=== PATIENT | male | born 1935 | race Caucasian/White ===

== ENCOUNTER 2016-11-26 17:49 | Emergency (ER) | payer MEDICARE, BC ==
[~2016-11-26] VITALS: Ht 177.8 cm; Wt 87.1 kg
[2016-11-26] MEDS ORDERED: MIDODRINE HCL2.5 MG PO (18:02)
[2016-11-26] MEDS ORDERED: ACID CONTROLLER20 M1 PO (18:02)
[2016-11-26] MEDS ORDERED: XANAX0.25 MG PO (18:02)
[2016-11-26] MEDS ORDERED: COLACE100 MG PO (18:03)
[2016-11-26] MEDS ORDERED: ASPIRIN CHEWABL81 MG PO (18:03)
[2016-11-26] MEDS ORDERED: DELTASONE20 M1 PO (18:03)
[2016-11-26] MEDS ORDERED: MIRTAZAPINE15 M2 PO (18:03)
[2016-11-26] MEDS ORDERED: Synthroid,Levo50 MCG PO (18:04)
[2016-11-26 18:23] LABS: BASO % 0.1 % (0.0-1.0); EOS % 0.1 % (1.0-4.0); HEMATOCRIT 47.6 % (42.0-52.0); HEMOGLOBIN 15.7 g/dl (14.0-18.0); IG # 0.1 10*3/uL (0.0-0.1); LYMPH # 1.5 10*3/uL (1.3-4.4); LYMPH % 11.9 % (27.0-41.0); MEAN CORPUSCULAR HGB 31.3 pg (27.0-31.0); MEAN PLATELET VOLUME 10.4 fl (9.6-12.3); MONO # 0.7 10*3/uL (0.1-1.0); MONO % 5.3 % (3.0-9.0); NEUT # 10.4 10*3/uL (2.3-7.9); PLATELET COUNT AUTOMATED 191 10*3/uL (130-400); RED BLOOD COUNT 5.01 10*6/uL (4.50-5.90); RED CELL DISTRI WIDTH 13.5 % (0-14.5); WHITE BLOOD COUNT 12.6 10*3/uL (4.8-10.8)
[2016-11-26 18:40] LABS: ALBUMIN 3.3 gm/dl (3.1-4.5); ALKALINE PHOSPHATASE 84 U/L (45-117); BILIRUBIN, TOTAL 0.4 mg/dl (0.2-1.0); BUN 18 mg/dl (7-24); CARBON DIOXIDE 31 mmol/L (21-32); CHLORIDE 107 mmol/L (98-107); EST GLOM FILT AFRICAN AMERICAN > 60 ml/min; GLUCOSE 105 mg/dL (65-99); POTASSIUM 4.9 mmol/L (3.5-5.1); SGOT/AST 19 IU/L (3-35); SGPT/ALT 39 U/L (12-78); SODIUM 143 mmol/L (136-145); TOTAL PROTEIN 6.6 gm/dL (6.4-8.2)
[2016-11-26 18:53] LABS: BILIRUBIN NEGATIVE (NEGATIVE); BLOOD TRACE-LYSED (NEGATIVE); CLARITY CLEAR (CLEAR); COLOR YELLOW (YELLOW); GLUCOSE NEGATIVE (NEGATIVE); KETONE NEGATIVE (NEGATIVE); LEUKO ESTERASE NEGATIVE (NEGATIVE); NITRITE NEGATIVE (NEGATIVE); PROTEIN NEGATIVE (NEGATIVE); SPECIFIC GRAVITY <= 1.005 (1.005-1.030); URINE AMPHETAMINES < 1000 (1000ng/ml); URINE BARBITURATES < 200 (200ng/ml); URINE COCAINE < 300 (300ng/ml); UROBILINOGEN 0.2 E.U./dl (0.2-1.0)
[2016-11-26 19:18] LABS: URINE REFLEX COMMENT NO (NO); WBC 0-2 wbc/hpf (0-5)
== END 2016-11-26 21:19 | disposition home health service (06) ==
LOC: ED 17:49
PROVIDERS: Nurse Practitioner Family
DX: F23 Brief psychotic disorder (principal); Z79.82 Long term (current) use of aspirin; Z79.899 Other long term (current) drug therapy; Z91.018 Allergy to other foods

== ENCOUNTER 2016-11-26 20:25 | Inpatient (IN) | payer MEDICARE, BC ==
[~2016-11-26] VITALS: Ht 177.8 cm; Wt 86.5 kg
--- NOTE | ~2016-11-26 | PR ---
[place], [place] PROGRESS NOTE [facility]: [id number] UNIT #: [id number] ROOM: 317 DOCTOR: KAREN FELDMAN BIRTHDATE: [birth year] DOS: 12/01/2016 CHIEF COMPLAINT: "When will I be going home?" SUMMARY OF THE VISIT: The patient was seen sitting in the dining room where he was eating breakfast. He is very bright and alert. He is wondering about what the plans are for his discharge and where he will be going for outpatient followup after discharge. He reports that he has had good sleep and good appetite. He mentioned going to [facility] for outpatient followup following discharge from here. He still has just a slight anxious edge to him. He is alert and oriented x 3. Mood is bright. Affect is appropriate. PLAN: We are going to go ahead and increase his Ativan a little just because he still has that kind of anxious edge. Social service is working on him with the discharge plan, it will either be a 30-day rehab stay or he will discharge home with outpatient followup. We will continue to engage in individual and bobo milieu, try to make him feel a little less of that anxious edge prior to discharge to the least restrictive environment. Karen Feldman NP CM:CHICO 41 KAREN FELDMAN 12/01/162040 interface
--- NOTE | ~2016-11-26 | WRIGHTHP ---
[place], [place] PATIENT HISTORY AND PHYSICAL EXAM NAME: [facility] [id number] UNIT #: [id number] ROOM: 317 DOCTOR: ISIDRO HARTLEY BIRTHDATE: [birth year] DOS: 11/27/2016 HISTORY OF PRESENT ILLNESS: This is an 81-year-old man admitted from [facility]. He also has had a recent stay at [facility] in the last couple of weeks due to increased anxiety and chemical imbalances, he describes it. He was out with family apparently in [facility], had thoughts of hurting himself. The Emergency Room report says others as well. He did not endorse that and thought he should go to the hospital. For some reason, his family drove him down to [place] instead of going back to [place]. I could not get a straight answer as far as why they did not go back to [place]. PAST MEDICAL HISTORY: Includes pulmonary fibrosis, AFib with an ablation, celiac disease, orthostatic hypotension. He had a subdural hematoma last year requiring craniotomy as well. The patient does endorse a history of depression and anxiety that he states is new. MENTAL STATUS: He is alert and oriented to person, place, approximate time, looks overwhelmingly anxious. At some point in time when I saw, he was processing items slow, he apologized and stated "I am so sorry, I am quite anxious right now, I just need a moment to catch my breath and calm down." He does need to be on oxygen 3 liters at all times. This is distressing to him as well because it kind of tethers him. He is not as active as he used to be in the past. The patient is on titrating dose of prednisone, started out at 30, is currently at 20. I will continue to titrate down to 10. It should be noted this could be triggering some of his anxiety as well. The patient stated that he was on Xanax 3 times a day 0.5 mg and had almost completed and tapered off it and then was started on the prednisone taper and noticed that his anxiety became exceedingly worse. So, I do think this is a triggering medication for him. The patient also stated that his thyroid medication had been recently adjusted. His TSH is 1.270. We are going to go ahead and check a T3 and T4. The patient also stated that approximately 2 weeks ago, his doctor stopped his Prozac that he felt was somewhat effective because it is contraindicated with pulmonary fibrosis and switched him to Remeron 15 mg at bedtime along with the Xanax 0.5 mg t.i.d. DIAGNOSES: Suicidal ideation secondary to anxiety and depression. PLAN: I am going to increase his Remeron to 22.5 mg at bedtime and amend. This should still give him histamine response to sedation for help with sleep and stimulate his appetite, but be a little bit more effective with depression. I changed his Xanax to Ativan. We are doing 0.5 mg t.i.d. plus p.r.n. made available. The patient is cautious about combining his Remeron with his Ativan and requested not to receive his nighttime dose of Ativan last night because he did not want to feel oversedated. The patient is very purposeful, a little OCD. He admits to liking his routines, which might be contributing to just an underlying generalized anxiety or OCD going on. Combined with his current health situation and the addition of the steroid taper, this might just be a perfect storm for this gentleman. He is feeling out of control, chemically imbalanced, is how he describes it. I have discussed medication changes with [place], [place] PATIENT HISTORY AND PHYSICAL EXAM NAME: ARNULFO LAURA UNIT #: [id number] ROOM: 317 DOCTOR: ISIDRO HARTLEY BIRTHDATE: 37 nursing. I have asked the patient to please let the nurses know when he is feeling particularly anxious, first and foremost to see if there is a scheduled Ativan available for him, but also let us see if within a recent administration of a steroid, see if the steroid really is triggering some of his anxiety. I also want them to check his pulse ox to make sure he is not hypoxic as well. It should be noted that the patient has admitted to wearing a pulse ox around his house 23/01, so there is underlying anxiety with this gentleman and the fear of being short of breath or not breathing or imminent doom. So, we need to start educating him a little bit on anxiety, panic attacks, maybe work with some cognitive behavioral therapy to help redirect his thoughts, but I did spend a lot of time speaking with him about how steroids can make you feel anxious and he just needs to kind of ride it out and once the steroid has filtered through his system, his anxiety should be less. So, hopefully a little bit of education will help decrease some of his anxiety as well. We will continue to try to engage in individual and bobo milieu therapy with a plan to discharge when psychologically stable. ROBERT HARTLEY CNP CM:HISPHYS:PATIENT HISTORY AND PHYSICAL EXAMINATION [id number] ISIDRO HARTLEY 11/28/16 1534 interface
--- NOTE | ~2016-11-26 | PR ---
[place], [place] PROGRESS NOTE NAME: [facility] #[facility] [id number] UNIT #: [id number] ROOM: 317 DOCTOR: ARNULFO NICHOLAS MD BIRTHDATE: [birth year] DOS: 11/29/2016 CHIEF COMPLAINT: This is so much better than yesterday. I feel a whole lot better." SUMMARY OF THE VISIT: The patient was interviewed as he rested quietly in bed. He engaged readily in conversation and reports he feels dramatically improved from yesterday. He does not have the hung over or he did and feels much more clear headed. Additionally, he feels that both the anxiety and the depression have come under control and he is tolerating the current medication regimen well with excellent benefits. MENTAL STATUS: He is alert and oriented to person, place, and time. Mood is strongly trending towards euthymia. Affect is much more appropriate. There are no symptoms of anxiety. There are no panic attacks or generalized anxiety. There is no erica or hypomania. There are no auditory or visual hallucinations. No delusions or paranoia are voiced. Short, intermediate, and long-term memory are intact. PLAN: I will maintain the current psychotropic regimen and monitor and support through the next 24 hours to make certain that the side effects truly have subsided and the benefits truly have taken effect. He will engage in individual and bobo milieu activity with the ultimate plan to return home when stable. ARNULFO NICHOLAS MD CM:PNTRANS [phone] [id number] ARNULFO NICHOLAS MD 11/29/16904 interface
--- NOTE | ~2016-11-26 | PR ---
[place], [place] PROGRESS NOTE NAME: ARNULFO LAURA [facility] #: [id number] UNIT #: [id number] ROOM: 317 DOCTOR: ISIDRO HARTLEY BIRTHDATE: [birth year] DOS: 11/30/2016 CHIEF COMPLAINT: "Good morning." SUMMARY OF VISIT: The patient was interviewed in his room where he was sitting up in bed with his oxygen on. Very calm, engaging, pleasant. We talked a little bit more about his steroid titration, he does feel that the steroids make his anxiety worse initially after taking it for about an hour or two. 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 He states that his sleep is good. His appetite is excellent. MENTAL STATUS: Alert and oriented to person, place, and time. Mood, definitely trending towards euthymic, ____ underlying anxiety. When I talked to him a little bit about possible discharge tomorrow, he is like what if I am not ready, what if I do not think I can do it. I then told him that if you are not ready, we are not going to send you home. This is not going to offend me at all. He ____ relief. Affect is appropriate. There are no overt signs of auditory or visual hallucinations, delusions, paranoia, erica or hypomania. Memory is overall intact. There is just some underlying anxiety and I think some of it is valid, I think some of it may still be complicated by his prednisone taper. PLAN: I am going to continue with his current psychotropics. I am not going to make any changes. I worked with him a little bit from a cognitive behavioral standpoint as far as redirecting his thoughts, lying down, taking deep breaths shortly after receiving his prednisone taper if his anxiety is worse and just giving the medication time to pass through his system. The patient states that he has been trying this since I discussed that with him over the weekend and it has been helpful. I did talk to the public health social worker, I think the patient would benefit from a 30-day stay at a nursing facility to help build up the strength, to help him deal with his new diagnosis, all the medication changes, get him through the steroid taper and just help him transition back into his life. It is really important that we encourage him that this does not have to be a sentence or be ready to at this point in time if there is plenty of life in him. We just got to get him believing it. Right now, I think he is just overwhelmed from all ____ and having difficulty processing it. Again, I am going to keep the psychotropics where they are at. He should be due for a decrease in his steroid within the next week, I believe on 12/07/2016 the decreased dose goes then. We will continue to engage in individual and bobo milieu therapy. We will follow up and see if a rehab stay is appropriate for him. [place], [place] PROGRESS NOTE NAME: ARNULFO LAURA UNIT #: [id number] ROOM: [facility] DOCTOR: ISIDRO HARTLEY BIRTHDATE: [birth year] ROBERT HARTLEY CNP CM:PNTRANS [phone] ISIDRO HARTLEY 11/30/162199 interface
--- NOTE | ~2016-11-26 | PR ---
[place], [place] PROGRESS NOTE [id number] UNIT #: [id number] ROOM: 317 DOCTOR: ARNULFO NICHOLAS MD BIRTHDATE: [birth year] DOS: 11/28/2016 CHIEF COMPLAINT: "I have been so anxious and depressed. I think though I am little hazy this morning." SUMMARY OF THE VISIT: The patient was interviewed as he sat in the dining area, watching television. He stopped and engaged readily in conversation with me. He reports that he has been battling depression and anxiety for sometime, does feel that the medicines that he is on here have already helped things like his sleep and have decreased some of his anxiety, but they are causing him to feel very fuzzy headed and overly somnolent during the day. He does not like the feeling and wants to be able to have symptoms controlled without this type of side effect. He denies any other side effects from the medicines themselves. MENTAL STATUS: He is alert and oriented to person, place, and time. Mood is depressed with anxious overtones. He endorses positive anxiety that is free floating and consistent throughout the day. He does not notice any precipitating factors or anything that makes it better. He notes no hypomania or erica and also notes no psychotic symptomatology. Memory is fully intact. PLAN: I will increase the Remeron from 22.5 mg at bedtime to 30 mg at bedtime in an effort to decrease some of the possible sedation. I will also lower his straight Ativan from 0.5 mg 3 times a day to 0.25 mg 3 times a day to see if this will control the anxiety without any somnolence during the day. We will engage in individual and bobo milieu activity with the plan to return home when stable. ARNULFO NICHOLAS MD CM:PNTRANS [phone] ARNULFO NICHOLAS MD 11/28/16 103 interface
--- NOTE | ~2016-11-26 | PR ---
[place], [place] PROGRESS NOTE [id number] UNIT #: [id number] ROOM: 317 DOCTOR: KAREN FELDMAN BIRTHDATE: [birth year] DOS: 12/02/2016 INTERVAL NOTE CHIEF COMPLAINT: "I am ready to go home." SUMMARY OF VISIT: He was seen in the dining room where he was having his breakfast. He is alert, pleasant. He was wearing his continuous O2, interacting with another resident who was sitting at the table with him. MENTAL STATUS EXAMINATION: He is alert and oriented. Mood is bright. Affect is appropriate. He simply is awaiting for the arrangements to be made for discharge. He needs to have pulmonary rehab as an outpatient as was recommended and that is kind of a hold-up, but we are trying to find for him. He will follow up with outpatient mental health as well once he is discharged from here. PLAN: To continue to monitor, make sure that we get this discharge set up and hopefully we can have him prepared for discharge as soon as tomorrow. Karen Feldman NP CM:PNMIGUEL ANGEL [phone] KAREN FELDMAN 12/03/16 0004 interface
--- NOTE | ~2016-11-26 | DS ---
[place], [place] DISCHARGE SUMMARY [id number] UNIT #: [id number] ROOM: 317 DOCTOR: ISIDRO HARTLEY BIRTHDATE: [birth year] DOS: 12/03/2016 HISTORY OF PRESENT ILLNESS: This is an 81-year-old gentleman admitted to [facility] with recent stay at [facility] in the last couple of weeks due to increased anxiety, what he describes as a chemical imbalance. The patient was in the [facility], had thoughts of hurting himself, his family drove him down to [place] with hopes to getting admitted to the Behavioral Health Unit here. The patient has had significant medical changes recently, pulmonary fibrosis requiring constant O2, which has increased some of his anxiety. On top of that, he has been receiving breathing treatments and a large prednisone taper, which has exacerbated his anxiety. 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 So, he has had a lot of mental, physical, and social changes. The patient was admitted to rule out organic factors and to stabilize on medications. PAST MEDICAL HISTORY: Pulmonary fibrosis, AFib with an ablation, celiac disease, orthostatic hypotension, history of a subdural hematoma, requiring a craniotomy last year, depression and anxiety. DIAGNOSES: AXIS I: Major depression, recurrent, severe, and anxiety. HOSPITAL COURSE: I increased his Remeron from 15 mg to 22.5 mg at bedtime to help with sleep, stimulate his appetite, and help with depression. We also started him on some scheduled Ativan to help with his anxiety, as this seems to help. We did some cognitive behavioral therapy and I advised the patient to let nurses know when he was feeling anxious and then the nurses would look back and see when he received his last prednisone pill and he was seeing a correlation between when he got the steroid and increase in anxiety, so that sort of made him feel a little bit better. He is little apprehensive about going home, but wants to go home. He is just depressed and overwhelmed about the change in his physicality and his life. MENTAL STATUS: He is alert and oriented to person, place, approximate time. Mood trending towards euthymic. Affect is appropriate. No overt signs of auditory or visual hallucinations, delusions, paranoia, erica, or hypomania. PLAN: The patient is scheduled or needs to follow up with the pulmonary rehabilitation as an outpatient. Recommended to help him with his breathing, learn to use his accessory muscles to help give a deeper more satisfying breath. He understands that the prednisone taper will eventually taper away and he should have some decreased anxiety. He is due for a dose reduction soon, overall is feeling better. He is being discharged on Remeron 30 mg at bedtime, primarily for depression and might help a little bit with his sleep and Ativan 0.5 mg b.i.d. He is to follow up with his primary care doctor and pulmonary rehabilitation to help him get a better understanding of his disease. Contributing factor was he was walking around his house with a pulse ox on his [place], [place] DISCHARGE SUMMARY NAME: ARNULFO LAURA UNIT #: [id number] ROOM: [facility] DOCTOR: ISIDRO HARTLEY BIRTHDATE: [birth year] finger 23/01, so this was increasing his anxiety. I have encouraged him not to do that. He should follow up again with primary care and may be reached out to someone with regards to therapy or counseling with regards to his pulmonary issues and dealing with these changes. He is being discharged in stable condition. ROBERT HARTLEY CNP CM:DISCHARG [id number] ISIDRO HARTLEY 12/03/16 0957 interface
[~2016-11-26 20:25] MED LIST: ACID CONTROLLER20 M1 PO; ASPIRIN CHEWABL81 MG PO; COLACE100 MG PO; DELTASONE20 M1 PO; MIDODRINE HCL2.5 MG PO; MIRTAZAPINE15 M2 PO; Synthroid,Levo50 MCG PO; XANAX0.25 MG PO
[2016-11-26 21:18] VITALS: BP 128/84
[2016-11-27 07:08] LABS: HEMOGLOBIN A1c 5.9 % (4.8-5.6)
[2016-11-27 07:09] LABS: FREE T4 0.94 ng/dl (0.76-1.46); THYROID STIM HORMONE (HS) 3.85 uIU/ml (0.358-4.75)
[2016-11-27 07:51] VITALS: BP 112/78
[2016-11-27 07:54] LABS: FOLIC ACID 14.22 ng/mL (>5.38); VITAMIN D, 25-HYDROXY 23.7 ng/mL (30-100)
[2016-11-27 20:06] VITALS: BP 100/67
[2016-11-28 06:12] LABS: BASO % 0.2 % (0.0-1.0); EOS # 0.2 10*3/uL (0.0-0.4); EOS % 1.1 % (1.0-4.0); HEMATOCRIT 45.6 % (42.0-52.0); HEMOGLOBIN 15.2 g/dl (14.0-18.0); IG # 0.1 10*3/uL (0.0-0.1); LYMPH # 2.8 10*3/uL (1.3-4.4); LYMPH % 21.1 % (27.0-41.0); MEAN CORPUSCULAR HGB 31.7 pg (27.0-31.0); MEAN CORPUSCULAR HGB CONC 33.3 g/dl (33.0-37.0); MEAN PLATELET VOLUME 10.6 fl (9.6-12.3); MONO # 1.1 10*3/uL (0.1-1.0); MONO % 8.6 % (3.0-9.0); NEUT % 68.2 % (47.0-73.0); PLATELET COUNT AUTOMATED 165 10*3/uL (130-400); RED CELL DISTRI WIDTH 13.6 % (0-14.5); WHITE BLOOD COUNT 13.2 10*3/uL (4.8-10.8)
[2016-11-28 06:45] LABS: BUN 18 mg/dl (7-24); CARBON DIOXIDE 32 mmol/L (21-32); CHLORIDE 105 mmol/L (98-107); EST GLOM FILT AFRICAN AMERICAN > 60 ml/min; GLUCOSE 85 mg/dL (65-99); POTASSIUM 4.6 mmol/L (3.5-5.1); SODIUM 145 mmol/L (136-145)
[2016-11-28 07:40] VITALS: BP 117/72
[2016-11-28 19:46] VITALS: BP 146/94
[2016-11-29 07:32] LABS: BASO % 0.2 % (0.0-1.0); EOS # 0.1 10*3/uL (0.0-0.4); EOS % 0.6 % (1.0-4.0); HEMATOCRIT 48.1 % (42.0-52.0); HEMOGLOBIN 15.9 g/dl (14.0-18.0); IG # 0.1 10*3/uL (0.0-0.1); LYMPH # 3.7 10*3/uL (1.3-4.4); LYMPH % 26.2 % (27.0-41.0); MEAN CELL VOLUME 96.2 fl (80.0-94.0); MEAN CORPUSCULAR HGB 31.8 pg (27.0-31.0); MEAN CORPUSCULAR HGB CONC 33.1 g/dl (33.0-37.0); MEAN PLATELET VOLUME 11.2 fl (9.6-12.3); MONO # 1.1 10*3/uL (0.1-1.0); MONO % 8.1 % (3.0-9.0); PLATELET COUNT AUTOMATED 177 10*3/uL (130-400); RED CELL DISTRI WIDTH 13.8 % (0-14.5)
[2016-11-29 07:40] VITALS: BP 128/64
[2016-11-29 08:07] LABS: BILIRUBIN NEGATIVE (NEGATIVE); BLOOD NEGATIVE (NEGATIVE); CLARITY CLEAR (CLEAR); COLOR YELLOW (YELLOW); GLUCOSE NEGATIVE (NEGATIVE); KETONE NEGATIVE (NEGATIVE); LEUKO ESTERASE NEGATIVE (NEGATIVE); NITRITE NEGATIVE (NEGATIVE); PH 6.5 (5.0-9.0); PROTEIN NEGATIVE (NEGATIVE); UROBILINOGEN 0.2 E.U./dl (0.2-1.0)
[2016-11-29 08:58] LABS: EPITHELIAL CELLS 0-2; URINE REFLEX COMMENT NO (NO)
[2016-11-29 19:59] VITALS: BP 117/75
[2016-11-30 07:06] LABS: FREE T3 010389 2.2 pg/mL (2.0-4.4); TOTAL T3 (TT3) 002188 77 ng/dL (71-180)
[2016-11-30 08:13] VITALS: BP 126/80
[2016-11-30 20:00] VITALS: BP 117/80
[2016-12-01 07:30] LABS: BASO % 0.2 % (0.0-1.0); EOS # 0.1 10*3/uL (0.0-0.4); EOS % 0.7 % (1.0-4.0); HEMATOCRIT 48.1 % (42.0-52.0); HEMOGLOBIN 15.6 g/dl (14.0-18.0); IG # 0.1 10*3/uL (0.0-0.1); LYMPH # 3.2 10*3/uL (1.3-4.4); LYMPH % 25.3 % (27.0-41.0); MEAN CELL VOLUME 95.6 fl (80.0-94.0); MEAN CORPUSCULAR HGB CONC 32.4 g/dl (33.0-37.0); MEAN PLATELET VOLUME 10.8 fl (9.6-12.3); MONO # 1.1 10*3/uL (0.1-1.0); MONO % 8.6 % (3.0-9.0); NEUT # 8.2 10*3/uL (2.3-7.9); NEUT % 64.3 % (47.0-73.0); PLATELET COUNT AUTOMATED 173 10*3/uL (130-400); RED BLOOD COUNT 5.03 10*6/uL (4.50-5.90); RED CELL DISTRI WIDTH 13.7 % (0-14.5); WHITE BLOOD COUNT 12.7 10*3/uL (4.8-10.8)
[2016-12-01 08:03] VITALS: BP 125/88
[2016-12-01 19:00] VITALS: BP 119/81
[2016-12-02 08:00] VITALS: BP 101/64
[2016-12-02 20:12] VITALS: BP 116/79
[2016-12-03] MEDS ORDERED: LORAZEPAM0.5 MG PO (08:02)
[2016-12-03] MEDS ORDERED: MIRTAZAPINE30 M2 PO (08:02)
[2016-12-03] MEDS ORDERED: D-1000 185 MG-11 TAB PO (08:02)
[2016-12-03 08:26] VITALS: BP 122/80
== END 2016-12-03 14:13 | disposition home or self-care (01) | DRG 885 ==
LOC: 3N 20:25
PROVIDERS: Internal Medicine; Nurse Practitioner Adult Health
DX: F33.2 Major depressive disorder, recurrent severe without psychotic features (principal); J96.11 Chronic respiratory failure with hypoxia; D68.59 Other primary thrombophilia; J84.10 Pulmonary fibrosis, unspecified; F23 Brief psychotic disorder; F41.9 Anxiety disorder, unspecified; E03.9 Hypothyroidism, unspecified; I48.91 Unspecified atrial fibrillation; K21.9 Gastro-esophageal reflux disease without esophagitis; N40.0 Benign prostatic hyperplasia without lower urinary tract symptoms; I95.1 Orthostatic hypotension; E55.9 Vitamin D deficiency, unspecified; K59.00 Constipation, unspecified; R73.03 Prediabetes; Z91.018 Allergy to other foods; Z87.891 Personal history of nicotine dependence; Z79.899 Other long term (current) drug therapy; Z79.82 Long term (current) use of aspirin; Z80.1 Family history of malignant neoplasm of trachea, bronchus and lung